=== PATIENT | female | born 2000 | race Caucasian/White ===

== ENCOUNTER 2023-10-20 14:13 | Outpatient (CLI) | payer OTHER, SELFPAY ==
--- NOTE | ~2023-10-20 | XR_ITS ---
XR lumbar spine min 4V 10/20/2023 14:46 Indication: Low back pain Procedure: 4 views lumbar spine including flexion/extension views Comparison: No prior studies for comparison. Findings: Vertebral body heights are maintained. Pedicles intact. No acute fracture, subluxation or s pondylolisthesis. No alteration of alignment with flexion/extension. Mild disc narrowing at L5-S1. Sa cral foramen are symmetric. Impression: 1: Mild lumbar spondylosis. Reviewed, dictated and finalized at location A. NELL OPERATOR Impression: 1: Mild lumbar spondylosis.
== END 2023-10-20 14:14 | disposition home or self-care (01) ==
PROVIDERS: PCP Nurse Practitioner Family; Visit Provider Physician Assistant
DX: M21.372 Foot drop, left foot (principal); M47.896 Other spondylosis, lumbar region
CPT/HCPCS: 72110